=== PATIENT | female | born 1970 | race African-American/Black ===

== ENCOUNTER 2017-01-28 14:30 | Day surgery (SDC) | payer BC ==
[~2017-01-28 14:30] MED LIST: CARV6.25 PO; CLON.1 PO; COLA100C PO; CYAN100025 PO; HEPAR10KP SQ; LACO100 PO; QUET1TAB7 PO; QUET1TAB8 PO; TRAZ50TA12 PO
[2017-01-28 17:15] VITALS: BP 113/69; PULSE 78; RESP 15; O2SAT 100
[2017-02-10] MEDS ORDERED: MEGE40SU PO (09:50)
[2017-02-10] MEDS ORDERED: THERTAB15 PO (09:50)
[2017-02-10] MEDS ORDERED: QUET5TAB PO (09:50)
[2017-02-10] MEDS ORDERED: HALO2TAB PO (09:50)
[2017-02-10] MEDS ORDERED: VITA10002 PO (09:50)
[2017-02-10] MEDS ORDERED: TRAZ50TA12 PO (09:50)
[2017-02-10] MEDS ORDERED: QUET1TAB9 PO (09:50)
[2017-02-10] MEDS ORDERED: LACO100 PO (09:50)
[2017-02-10] MEDS ORDERED: COLL30T TOPICAL (09:50)
[2017-02-10] MEDS ORDERED: VALP250C PO (09:50)
[2017-02-10] MEDS ORDERED: CARV3.125 PO (09:50)
== END 2017-01-28 17:27 ==
LOC: HSDC 14:30
PROVIDERS: ATTEND Radiology Body Imaging
DX: Z46.89 Encounter for fitting and adjustment of other specified devices (principal)